=== PATIENT | male | born 1960 | race African-American/Black ===

== ENCOUNTER 2024-04-01 11:42 | Emergency (ER) | payer MEDICARE, OTHER, SELFPAY ==
[2024-04-01 11:45] VITALS: BP 124/76
--- NOTE | 2024-04-01 12:14 | ED.GENMED ---
History of Present Illness
General
Chief Complaint: Musculo-Skeletal Complaint
Time Seen by Provider: 04/01/24 12:14
History of Present Illness
History of Present Illness:
HPI: The patient presents with dorsal medial left foot pain. This is nontraumatic. He is on narcotic analgesia (Dilaudid) related to recent hip surgery. He has had no fevers. The pain worsens with walking. He has had gout on the other foot and
this feels somewhat similar.
EXAM:
GENERAL: Well appearing in no distress
HEENT: Moist oral mucosa
NEUROLOGIC: Excellent strength all extremities, no obvious coordination deficits
PSYCHIATRIC: Appropriate mental status, normal insight and judgement
EXTREMITIES: There is no tenderness at the MTP joint of the left foot however there is more proximal tenderness at the first metatarsal. There is no evidence for septic joint, there are strong DP and PT pulses to the affected foot.
SKIN: No rash, no lesions
TIME OF INITIAL ENCOUNTER: 1 PM
NUMBER AND COMPLEXITY OF PROBLEMS ADDRESSED AT THE ENCOUNTER
� Chronic conditions affecting care: History of TBI, CAD, high blood pressure, hyperlipidemia, diverticular disease
� Acute Exacerbation and/or Progression of Chronic Illness: This is an acute problem
� Differential Diagnosis includes: Gout, osteoarthritis, no evidence of septic joint or arterial compromise based on physical examination, no evidence for cellulitis
AMOUNT AND/OR COMPLEXITY OF DATA TO BE REVIEWED AND ANALYZED
� I performed an independent evaluation of and my interpretation is:
EKG:
CT:
X-rays: X-rays personally reviewed which shows some degenerative changes
Laboratory Studies:
Other:
� Review of other/old records: The patient was admitted here in July of last year likely pneumonia
� Clinical information was obtained by an independent historian: I spoke to the at bedside
� Prescriptions/Medications Considered but not given: The patient is already on narcotic analgesia
� Further testing considered but not performed:
RISK OF COMPLICATIONS AND/OR MORBIDITY OR MORTALITY OF PATIENT MANAGEMENT
� Social determinants of health affecting care: Lives at home
� Discussion with other providers:
� Escalation of care including admission/observation vs risk of discharge considered: The cause of the patient's symptoms is unclear however there is no evidence for serious etiology such as arterial compromise or septic joint.
Will try steroids as there may be a component of gout.
Past History
Past History
ED Past Medical History: Asthma, CAD and CVA
ED Past Surgical History: Orthopedic, Urological and Other (Gastric sleeve)
Phy Exam
Physical Exam
Physical Exam:
See HPI
Course
Orders/Labs/Results
Orders:
Orders
04/01/24 11:52
Foot, Left 3 View [CR Foot - Left Min 3 Views] Urgent
Comment:
Reason For Exam: pain
04/01/24 13:28
Ketorolac [Toradol] 30 mg IM NOW STA
Prednisone [Deltasone] 50 mg PO NOW STA
Vital Signs
Initial and Last Documented VS:
Initial Vital Signs
Temp Pulse Resp BP Pulse Ox
98.2 F 79 16 124/76 98
04/01/24 11:45 04/01/24 11:45 04/01/24 11:45 04/01/24 11:45 04/01/24 11:45
Last Documented Vital Signs
Temp Pulse Resp BP Pulse Ox
98.2 F 79 16 124/76 98
04/01/24 11:45 04/01/24 11:45 04/01/24 11:45 04/01/24 11:45 04/01/24 11:45
*Critical Care Note
Total Time (30-74mins, 75-104mins- exclusive of procedures): Not Applicable
ED Attending Note
-
Portions of this chart may have been created with voice recognition software.� Occasional wrong word or��sound alike� substitutions may have occurred due to the inherent limitations of voice recognition software.
Discharge Plan
Departure
Patient Disposition: Home (Routine Discharge)
Date of Disposition: 04/01/24
Time of Disposition: 13:29
Patient with high blood pressure during this ER visit?: Yes
Discharge Problem:
Acute foot pain
Instructions: Metatarsalgia (DC)
Prescriptions:
New
prednisone 50 mg tablet
50 mg PO DAILY Qty: 4 0RF
No Action
atorvastatin 80 mg Tablet
80 mg PO HS
aspirin 81 mg Tablet,Delayed Release (Dr/Ec)
81 mg PO DAILY
calcium carbonate 500 mg calcium (1,250 mg) Tablet
500 mg PO DAILY
amlodipine 10 mg Tablet
10 mg PO DAILY
valsartan 320 mg Tablet
320 mg PO DAILY
vitamin B complex Tablet
1 tab PO DAILY
hydralazine 50 mg Tablet
50 mg PO DAILY
diphenhydramine-acetaminophen [Tylenol PM Extra Strength] 25-500 mg Tablet
1 tab PO HS PRN (Reason: mild pain)
fluticasone propionate 50 mcg/actuation [place],Suspension
1 spray INTRANASAL DAILY PRN (Reason: allergies)
metoprolol tartrate 25 mg Tablet
25 mg PO BID
Centrum Silver Men [id number] mcg Tablet
2 tab PO DAILY
Ubrelvy 100 mg Tablet
100 mg PO DAILYPRN PRN (Reason: migraine)
Robitussin
1 dose PO BIDPRN PRN (Reason: congestion)
albuterol sulfate 2.5 mg/0.5 mL Solution For Nebulization
2.5 mg INHALATION R Q6HPRN PRN (Reason: sob)
hydrochlorothiazide 25 mg Tablet
25 mg PO DAILY
prednisone 20 mg Tablet
40 mg PO DAILY Qty: 6 0RF
Rx Instructions:
for next 3 days
azithromycin 250 mg Tablet
500 mg PO DAILY@1600 Qty: 2 0RF
cefdinir 300 mg Capsule
300 mg PO Q12 Qty: 10 0RF
guaifenesin 600 mg Tablet Extended Release 12hr
600 mg PO Q12 Qty: 14 0RF
albuterol sulfate 90 mcg/actuation Hfa Aerosol Inhaler
2 puff INHALATION R Q6HPRN PRN (Reason: sob) Qty: 1 0RF
Referrals:
Odalis Valle MD [Family Provider] -
Activity Restrictions/Additional Instructions:
The cause of your pain is unclear. We gave a dose of Toradol. I am also sending a prescription for steroids to your pharmacy.
Interventions
Interventions:
*Risk Screen - Suicide Last Done: 04/01/24 11:45
*General Assessment Last Done: 04/01/24 11:45
*Neglect/Abuse Screening Last Done: 04/01/24 11:45
Discharge Date and Time
Print Language: [place]
[2024-04-01] MEDS: TORADOL 30 MG IM (13:40)
[2024-04-01] MEDS: DELTASONE 50 MG PO (13:42)
== END 2024-04-01 14:05 | disposition home or self-care (01) ==
LOC: EMR 11:42
PROVIDERS: EMERGENCY PHYSICIAN Emergency Medicine; FAMILY PHYSICIAN Internal Medicine
DX: M79.672 Pain in left foot (principal); I25.10 Atherosclerotic heart disease of native coronary artery without angina pectoris; J45.909 Unspecified asthma, uncomplicated; Z86.73 Personal history of transient ischemic attack (TIA), and cerebral infarction without residual deficits
CPT/HCPCS: 99283; 73630